=== PATIENT | male | born 1970 | race Caucasian/White ===

== ENCOUNTER 2021-03-17 14:21 | Outpatient (CLI) | payer BC, SELFPAY | END 2021-03-17 14:22 | disposition home or self-care (01) | LOC: SPT 14:25 | PROVIDERS: Visit Provider Orthopaedic Surgery | DX: Z46.89 Encounter for fitting and adjustment of other specified devices (principal); S62.396D Other fracture of fifth metacarpal bone, right hand, subsequent encounter for fracture with routine healing; X58.XXXD Exposure to other specified factors, subsequent encounter | CPT/HCPCS: 97760; L3984 ==

== ENCOUNTER → 2021-04-08 08:11 | Outpatient (BNVA) | payer BC, SELFPAY | PROVIDERS: Visit Provider Orthopaedic Surgery | DX: S62.306A Unspecified fracture of fifth metacarpal bone, right hand, initial encounter for closed fracture (principal); X58.XXXA Exposure to other specified factors, initial encounter; M19.041 Primary osteoarthritis, right hand | CPT/HCPCS: 73130 ==

== ENCOUNTER 2023-07-07 07:09 | Day surgery (SDC) | payer BC, SELFPAY ==
[2023-07-07] MEDS: sodium chloride 0.9% 1,000 ML 30 ML IV (07:30)
[2023-07-07 07:31] VITALS: BP 143/82; PULSE 45; RESP 16; TEMP 36.3; O2SAT 96
--- NOTE | 2023-07-07 08:19 | ANES.PREANE2 ---
Pre-Anesthetic Assessment Height/Weight: Height 1.85 m Weight 95.254 kg Temp Pulse Resp BP Pulse Ox O2 Del Method 97.3 F L 45 L 16 143/82 96 Room Air 07/07/23 07:31 07/07/23 07:31 07/07/23 07:31 07/07/23 07:31 07/07/23 07:31 07/07/23 07:31 Preop Diagnosis: screening Operation Date: 07/07/23 08:15 Proposed Procedures p Colonoscopy 88828,Z12.11(Not Applicable) - Jones Nogueira DO Familial anesthetic complications: none Was Beta Raymond taken within 24 hours: N/A Was Clonidine taken within 24 hours: N/A Last intake: Intake Last Liquid Date 07/06/23 Last Liquid Time 22:00 Last Solid Date 07/05/23 Last Solid Time 17:00 Last Intake: 22:00 Social Alcohol (4-6 beers) and No tobacco Exam alert, oriented x 3, clear to auscultation bilaterally and regular rate & rhythm Airway Submandibular: within normal limits Cervical ROM: within normal limits Mallampati: Class II Dentition: full Pulmonary None reported CV/HEM None reported None reported Hepatic None reported GI None reported Metabolic None reported Musc/skel None reported Neuropsych None reported Anesthetic Plan ASA status: 1 Anesthesia: MAC Risk of > 500 ml blood loss (7ml/kg in children): No Medications/Allergies Home Medications Medication Instructions Recorded Confirmed Last Taken Type FAST FORM ULNAR GUTTER SPLINT #1 ea 03/17/21 05/18/23 Unknown Rx No Known Home Medications 03/17/21 07/07/23 Unknown History Allergies Allergy/AdvReac Type Severity Reaction Status Date / Time No Known Allergies Allergy Verified 07/05/23 07:59 Current Medications Generic Name Dose Route Start Last Admin Trade Name Freq PRN Reason Stop Dose Admin Sodium Chloride 1,000 mls @ 30 mls/hr 07/07/23 07:30 07/07/23 07:30 Sodium Chloride 0.9% IV 07/08/23 07:29 30 mls/hr .Q24H SOLANGE Administration PFSH Anesthesia Social History Smoking and tobacco status: never smoked Alcohol intake: current Alcohol intake frequency: 3 or more drinks per day Alcohol type: beer Household members: spouse Marital status: Data Anesthesia Cardiac Studies: No Data to Display
--- NOTE | 2023-07-07 08:28 | PM.HP ---
Providers/Chief Complaint Primary Care Provider: Brenden Escobar Chief Complaint: 17202, Z12.11 History of Present Illness Umesh Cordero is a 52 year old male Medications/Allergies Home Medications Medication Instructions Recorded Confirmed Last Taken Type FAST FORM ULNAR GUTTER SPLINT #1 ea 03/17/21 05/18/23 Unknown Rx No Known Home Medications 03/17/21 07/07/23 Unknown History Allergies Allergy/AdvReac Type Severity Reaction Status Date / Time No Known Allergies Allergy Verified 07/05/23 07:59 PFSH Acute PFSH: Social History Smoking and tobacco status: never smoked Alcohol intake: current Alcohol intake frequency: 3 or more drinks per day Alcohol type: beer Household members: spouse Marital status: Vitals/I&O/Wt Last Vital Signs Temp 97.3 F L 07/07/23 07:31 Pulse 45 L 07/07/23 07:31 Resp 16 07/07/23 07:31 BP 143/82 07/07/23 07:31 Pulse Ox 96 07/07/23 07:31 O2 Del Method Room Air 07/07/23 07:31 A&P Assessment and plan (1) Colon cancer screening: Plan Colonoscopy Attestations Medical Necessity Statement*: Home Coding Level of Care Code Acute Code for Chg Fwd Diagnoses Colon cancer screening Z12.11
[2023-07-07 08:51] VITALS: BP 97/58; PULSE 56; RESP 16; TEMP 36.1; O2SAT 95
[2023-07-07 09:02] VITALS: BP 95/62; PULSE 63; RESP 17; O2SAT 98
--- NOTE | 2023-07-07 09:30 | ANE.PACU2 ---
Inpatient post-anesthesia follow up: Airway intact: Yes Vital signs: Temperature 97.0 F Pulse Rate 63 Respiratory Rate 17 Blood Pressure 95/62 Pulse Oximetry 98 Oxygen Delivery Me thod Room Air Oxygen Flow Rate Fraction of Inspir ed Oxygen Hydration adequate: Yes Nausea and vomiting: No Pain level: 1 Mental status: Baseline
== END 2023-07-07 09:33 | disposition home or self-care (01) ==
PROVIDERS: PCP Family Medicine; Visit Provider Surgery
PROC: 0DJD8ZZ Inspection of Lower Intestinal Tract, Via Natural or Artificial Opening Endoscopic (ICD-10-PCS; CPT 45378; principal; 2023-07-07 08:15)
DX: Z12.11 Encounter for screening for malignant neoplasm of colon (principal); K63.5 Polyp of colon
CPT/HCPCS: 45385; 88305; J2704; J7030